=== PATIENT | male | born 1975 | race Caucasian/White ===

== ENCOUNTER 2020-06-28 07:05 | Outpatient (CLI) | payer BC, SELFPAY ==
--- NOTE | 2020-06-28 07:14 | US_ITS ---
WS: [id number] RIGHT UPPER QUADRANT ULTRASOUND HISTORY: ELEVATED LFTS COMPARISON: None available. Liver: 19.3 cm in length. Normal size liver. 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 Surface of the liver is normal. Gallbladder: Normally distended gallbladder. 2 mm polyp versus focal area of adenomyomatosis. No ston es. CBD: 0.4 cm Pancreas: Normal size and echogenicity. Right kidney: 11.5 cm in length. Normal size and echogenicity. No hydronephrosis or mass. Aorta and IVC: Unremarkable abdominal aorta and IVC. No ascites. US/US abdomen limited 89144 IMPRESSION: 1. Normal size liver with mild changes of hepatic steatosis. 2. Tiny gallbladder polyp versus focal adenomyomatosis. No cholelithiasis.
== END 2020-06-28 07:06 | disposition home or self-care (01) ==
LOC: US 07:08
PROVIDERS: PCP Family Medicine; Visit Provider Family Medicine
DX: R79.89 Other specified abnormal findings of blood chemistry (principal); R94.5 Abnormal results of liver function studies; K76.0 Fatty (change of) liver, not elsewhere classified
CPT/HCPCS: 76705

== ENCOUNTER 2024-02-07 09:14 | Day surgery (SDC) | payer OTHER, SELFPAY ==
[2024-02-07 09:29] VITALS: BP 123/89; PULSE 88; RESP 16; TEMP 36.6; O2SAT 98
[2024-02-07 09:30] VITALS: BMI 30.1
[2024-02-07] MEDS: sodium chloride 0.9% 1,000 ML 30 ML IV (09:30)
[2024-02-07 09:47] LABS: Glucose Point of Care 128 mg/dL (70-110)
--- NOTE | 2024-02-07 09:50 | ANES.PREANE2 ---
Pre-Anesthetic Assessment Height/Weight: Height 1.78 m Weight 95.254 kg Temp Pulse Resp BP Pulse Ox 98 F 88 16 123/89 98 02/07/24 09:29 02/07/24 09:29 02/07/24 09:29 02/07/24 09:29 02/07/24 09:29 Operation Date: 02/07/24 10:30 Proposed Procedures p EGD 84686,08548, G0121, z12.11, K21.9(Not Applicable) - DO jay Ambrose Colonoscopy(Not Applicable) - Lloyd Lauren DO Familial anesthetic complications: None Was Beta Shana taken within 24 hours: N/A Was Clonidine taken within 24 hours: N/A Last intake: Intake Last Liquid Date 02/06/24 Last Liquid Time 23:30 Last Solid Date 02/05/24 Last Solid Time 21:00 Social No alcohol and No tobacco Exam alert, oriented x 3, clear to auscultation bilaterally and regular rate & rhythm Airway Mallampati: Class II Dentition: full CV/HEM Hypertension GI Gastroesophageal Reflux Disease Metabolic Diabetes Mellitus and Hyperlipidemia Anesthetic Plan ASA status: 3 Anesthesia: MAC Risk of > 500 ml blood loss (7ml/kg in children): No Medications/Allergies Home Medications Medication Instructions Recorded Confirmed Last Taken Type levothyroxine 25 mcg capsule 25 mcg PO DAILY 06/29/23 02/05/24 02/04/24 History lisinopril 20 mg tablet 40 mg PO DAILY 06/29/23 02/05/24 02/04/24 History blood-glucose meter #1 ea 12/21/23 Unknown Rx dulaglutide 0.75 mg/0.5 mL 0.75 mg (0.5 mL) SUBCUT .Weekly #2 12/21/23 02/05/24 01/30/24 Rx subcutaneous pen injector mL (Trulicity) lancets 30 gauge and blood glucose #200 ea 12/21/23 Unknown Rx strips combo pack metformin 500 mg tablet,extended 500 mg PO DAILY #30 tabs 12/21/23 02/05/24 02/04/24 Rx release 24 hr insulin aspart U-100 100 unit/mL 10 unit SUBCUT TID 02/05/24 02/05/24 02/04/24 History (3 mL) subcutaneous pen pantoprazole 40 mg tablet,delayed 40 mg PO BID 07/02/05/24 02/04/24 History release Allergies Allergy/AdvReac Type Severity Reaction Status Date / Time Penicillins Allergy Unknown Verified 12/21/23 13:07 Data Anesthesia Cardiac Studies: No Data to Display
--- NOTE | 2024-02-07 11:15 | W.PM.OPSUD ---
Surgery/Procedure H&P Update DATE OF PROCEDURE: February 07, 2024 DATE H&P PERFORMED: 01/31/24 H&P UPDATE INFORMATION: I have reviewed H&P completed within last 30 days, I have examined patient prior to procedure and No changes to prior documentation PLANNED PROCEDURE: Operation Date: 02/07/24 10:30 Proposed Procedures p EGD [id number], G0121, z12.11, K21.9(Not Applicable) - DO jay Ambrose Colonoscopy(Not Applicable) - Lloyd Lauren DO
[2024-02-07 11:41] VITALS: BP 121/86; PULSE 89; RESP 16; TEMP 36.1; O2SAT 99
[2024-02-07 12:00] VITALS: BP 118/85; PULSE 85; RESP 16; O2SAT 100
[2024-02-07 12:16] VITALS: BP 108/82; PULSE 73; RESP 18; O2SAT 99
--- NOTE | 2024-02-07 12:25 | ANE.PACU2 ---
Inpatient post-anesthesia follow up: Airway intact: Yes Vital signs: Temperature 97.0 F Pulse Rate 73 Respiratory Rate 18 Blood Pressure 108/82 Pulse Oximetry 99 Oxygen Delivery Me thod Room Air Oxygen Flow Rate 10 Fraction of Inspir ed Oxygen Hydration adequate: Yes Nausea and vomiting: No Pain level: 1 Mental status: Baseline
== END 2024-02-07 12:25 | disposition home or self-care (01) ==
PROVIDERS: PCP Family Medicine; Visit Provider Surgery
PROC: 0DJ08ZZ Inspection of Upper Intestinal Tract, Via Natural or Artificial Opening Endoscopic (ICD-10-PCS; CPT 43235; principal; 2024-02-07 10:30)
PROC: 0DJD8ZZ Inspection of Lower Intestinal Tract, Via Natural or Artificial Opening Endoscopic (ICD-10-PCS; CPT 45378; 2024-02-07 10:30)
DX: Z12.11 Encounter for screening for malignant neoplasm of colon (principal); K21.9 Gastro-esophageal reflux disease without esophagitis; D12.4 Benign neoplasm of descending colon; K29.50 Unspecified chronic gastritis without bleeding; I10 Essential (primary) hypertension; E11.9 Type 2 diabetes mellitus without complications; E78.5 Hyperlipidemia, unspecified; Z79.84 Long term (current) use of oral hypoglycemic drugs; Z79.4 Long term (current) use of insulin
CPT/HCPCS: 36416; 43239; 45385; 82962; 88305; 88342; J2704; J7030